=== PATIENT | male | born 1990 | race African-American/Black ===

== ENCOUNTER 2023-11-07 15:58 | Emergency (ER) | payer SELFPAY ==
[~2023-11-07] VITALS: Ht 193 cm; Wt 112.0 kg
[2023-11-07 16:13] VITALS: O2SAT 99
[2023-11-07] MEDS: KETOROLAC 30MG/ML VIAL IM ONE (18:27)
[2023-11-07] MEDS ORDERED: LIDO700A15 TP (19:35)
[2023-11-07] MEDS ORDERED: NAPR-1176 MT (19:35)
[2023-11-07] MEDS ORDERED: CYCL5TAB MT (19:35)
[2023-11-07 20:00] VITALS: BP 135/72; PULSE 68; RESP 16; TEMP 98.2
== END 2023-11-07 20:00 | disposition home or self-care (01) ==
LOC: ER 15:58
DX: M54.9 Dorsalgia, unspecified (principal); M54.2 Cervicalgia
CPT/HCPCS: 99283; 72050; 96372; J1885

== ENCOUNTER 2023-12-18 23:03 | Inpatient (IN) | payer SELFPAY ==
[~2023-12-18] VITALS: Ht 193 cm; Wt 109.0 kg
[~2023-12-18 23:03] MED LIST: CYCL5TAB MT; LIDO700A15 TP; NAPR-1176 MT
[2023-12-19] MEDS: PREDNISONE 20MG TABLET PO ONE (01:15)
[2023-12-19 01:38] VITALS: PULSE 70; RESP 18; O2SAT 99
[2023-12-19] MEDS: IPRATROPIUM/ALBUTEROL 0.5-3(2.5)MG/3ML NEB HHN ONE ×3 (01:38→04:05)
[2023-12-19 02:57] VITALS: PULSE 70; RESP 18; O2SAT 99
[2023-12-19] MEDS ORDERED: ALBU05 NEB (03:06)
[2023-12-19] MEDS ORDERED: P20 MT (03:06)
[2023-12-19] MEDS ORDERED: ALBU6.7H15 INH (03:06)
[2023-12-19] MEDS ORDERED: MAGNESIUM 1 G PREMIX 100 ML IV ONE (03:15)
[2023-12-19 04:05] VITALS: PULSE 74; RESP 18; O2SAT 99
[2023-12-19 04:22] LABS: BASOPHILS % 1.1 % (0.0-2.0); EOSINOPHILS % 4.6 % (0.0-5.0); HEMATOCRIT. 43.9 % (42.0-52.0); HEMOGLOBIN. 14.7 g/dL (14.0-18.0); LYMPHOCYTES % 16.1 % (20.0-50.0); MEAN CORPUSCULAR HEMOGLOBIN 28.6 pg (28.0-32.0); MEAN CORPUSCULAR HGB CONC 33.5 g/dL (31.0-37.0); MEAN CORPUSCULAR VOLUME 85.4 fL (80.0-94.0); MEAN PLATELET VOLUME 9.8 fl (7.4-10.4); MONOCYTES % 6.5 % (2.0-8.0); NEUTROPHILS % 71.7 % (40.0-76.0); PLATELET 285 x1000/uL (130-400); RED BLOOD CELL COUNT 5.14 mill/uL (4.7-6.1); RED CELL DISTRIBUTION WIDTH 13.5 % (11.6-14.6); WHITE BLOOD COUNT 6.1 x1000/uL (4.5-11.0)
[2023-12-19] MEDS: MAGNESIUM 2 G PREMIX 50 ML IV ONE (04:28)
[2023-12-19 04:30] LABS: CHLORIDE 104 mEq/L (98-107); POTASSIUM 3.6 mEq/L (3.5-5.1); SODIUM 138 mEq/L (136-145)
[2023-12-19 04:31] LABS: CALCIUM 9.2 mg/dL (8.7-10.4); CARBON DIOXIDE 25 mEq/L (21-32)
[2023-12-19 04:36] LABS: GLUCOSE 123 mg/dL (70-105); UREA NITROGEN BLOOD 11 mg/dL (9-23)
[2023-12-19 04:38] LABS: ALANINE AMINOTRANSFERASE 19 IU/L (10-49); ALBUMIN 4.3 g/dL (3.2-4.8); ASPARTATE AMINOTRANSFERASE 24 IU/L (<34); BILIRUBIN TOTAL 0.4 mg/dL (0.1-1.0); PROTEIN TOTAL 7.3 g/dL (6.0-8.3)
[2023-12-19] MEDS ORDERED: CLONIDINE 0.1MG TABLET PO PRN (13:00)
[2023-12-19] MEDS ORDERED: ACETAMINOPHEN 325MG TABLET PO PRN (13:00)
[2023-12-19] MEDS ORDERED: ONDANSETRON HCL 4MG/2ML INJ IV PRN (13:00)
[2023-12-19] MEDS: ENOXAPARIN 40MG/0.4ML SYR SUBCUT SCH (13:23)
[2023-12-19] MEDS: METHYLPREDNISOLONE SOD SUCC 40MG/ML (ACT-O-VIAL) IV SCH (13:25)
[2023-12-19 16:40] VITALS: PULSE 79; RESP 20
[2023-12-19] MEDS: IPRATROPIUM/ALBUTEROL 0.5-3(2.5)MG/3ML NEB HHN SCH (16:40)
[2023-12-19 18:11] VITALS: BP 113/35; PULSE 80; RESP 15; TEMP 98
== END 2023-12-19 18:12 | disposition left against medical advice (07) | DRG 141 ==
LOC: ER 23:34 → 5WST 12-19 04:48
PROVIDERS: ADMIT Internal Medicine; ATTEND Internal Medicine
DX: J45.901 Unspecified asthma with (acute) exacerbation (principal); J96.91 Respiratory failure, unspecified with hypoxia; J18.9 Pneumonia, unspecified organism; Z53.29 Procedure and treatment not carried out because of patient's decision for other reasons; Z59.7 Insufficient social insurance and welfare support; Z79.899 Other long term (current) drug therapy
CPT/HCPCS: 36415; 71045; 80053; 85025; 94640; 99285; J1650; J2920; J3475; J7512

== ENCOUNTER 2024-01-04 11:27 | Emergency (ER) | payer OTHER ==
[~2024-01-04] VITALS: Ht 188 cm; Wt 118.0 kg
[~2024-01-04 11:27] MED LIST changes: +ALBU05 NEB; +ALBU6.7H15 INH; +P20 MT
[2024-01-04 11:41] VITALS: BP 126/72; PULSE 82; RESP 18; TEMP 97.9; O2SAT 97
== END 2024-01-04 13:30 | disposition left against medical advice (07) ==
LOC: ER 11:27
DX: R50.9 Fever, unspecified (principal); Z53.21 Procedure and treatment not carried out due to patient leaving prior to being seen by health care provider